=== PATIENT | female | born 1950 | race Caucasian/White ===

== ENCOUNTER → 2022-05-21 | Outpatient (CLI) | payer MEDICARE ==
[2022-05-21 18:21] LABS: BASOPHILS ABSOLUTE AUTO 0.04 K/mm3 (0.00-0.23); BASOPHILS PERCENT AUTO 1 % (0-2); EOSINOPHILS ABSOLUTE AUTO 0.12 K/mm3 (0.00-0.68); EOSINOPHILS PERCENT AUTO 2 % (0-6); Hematocrit 42.7 % (33.0-51.0); Hemoglobin 14.3 g/dL (11.5-16.0); IMMATURE GRAN ABSOLUTE AUTO 0.01 K/mm3 (0.00-0.10); IMMATURE GRAN PERCENT AUTO 0 % (0-1); LYMPHOCYTES ABSOLUTE AUTO 2.81 K/mm3 (0.84-5.20); LYMPHOCYTES PERCENT AUTO 42 % (21-46); MONOCYTES ABSOLUTE AUTO 0.43 K/mm3 (0.16-1.47); MONOCYTES PERCENT AUTO 6 % (4-13); Mean Corpuscular HGB 31.7 pg (26.0-34.0); Mean Corpuscular HGB Conc 33.5 g/dL (31.5-36.5); Mean Corpuscular Volume 95 fL (80-100); Mean Platelet Volume 9.4 fL (9.1-12.4); NEUTROPHILS ABSOLUTE AUTO 3.28 K/mm3 (1.96-9.15); NEUTROPHILS PERCENT AUTO 49 % (41-73); Platelet Count 265 K/mm3 (150-400); RDW Coefficient Variation 13.5 % (11.7-14.2); RDW Standard Deviation 46.6 fL (35.1-46.3); Red Blood Cell Count 4.51 M/mm3 (3.80-5.20); White Blood Cell Count 6.69 K/mm3 (4.00-11.30)
== END | disposition home or self-care (01) ==
LOC: LAB SHORT 18:16 → LAB 18:16
PROVIDERS: Family Medicine
DX: R05.9 Cough, unspecified (principal)
CPT/HCPCS: 85025; 85379

== ENCOUNTER → 2022-06-23 | Outpatient (CLI) | payer MEDICARE ==
[2022-06-24 11:12] LABS: Candida species (DNA Probe) Negative (NEGATIVE); G. vaginalis (DNA Probe) Negative (NEGATIVE); T. vaginalis (DNA Probe) Negative (NEGATIVE)
== END ==
LOC: LAB SHORT 18:25 → LAB 18:25
PROVIDERS: Advanced Practice Midwife
DX: N76.0 Acute vaginitis (principal)
CPT/HCPCS: 87480; 87510; 87660

== ENCOUNTER 2022-11-19 06:42 | Day surgery (SDC) | payer MEDICARE ==
[~2022-11-19] VITALS: Ht 162.6 cm; Wt 78.2 kg
[~2022-11-19 06:42] MED LIST: CARB100ER; CLON.5 PO; LEVSOD100 PO; Oxcarbazepine150 MG PO; ROSU10TA PO; TRAZ100 PO
[2022-11-19] MEDS ORDERED: EPINEPHRIN0.3 MG/0.1 (07:01)
[2022-11-19] MEDS ORDERED: DESVENLAFAXINE25 MG PO (07:01)
[2022-11-19] MEDS ORDERED: IPRATROPIUM BRO30 ML (07:02)
[2022-11-19] MEDS ORDERED: IBUP200 (07:03)
--- NOTE | 2022-11-19 07:09 | NUR ---
11/19/22 0709 Jessica Alan [id number] PLEDGET [id number]
[2022-11-19 08:27] VITALS: BP 150/73
== END 2022-11-19 08:46 | disposition home or self-care (01) ==
LOC: ORSCSDS 06:42
PROVIDERS: Ophthalmology
PROC: 08DK3ZZ Extraction of Left Lens, Percutaneous Approach (ICD-10-PCS; principal; 2022-11-19 08:00)
DX: H25.12 Age-related nuclear cataract, left eye (principal); E78.5 Hyperlipidemia, unspecified; I49.3 Ventricular premature depolarization; Z79.899 Other long term (current) drug therapy
CPT/HCPCS: J2001; J2250; J2704; J3010; J3301; J7040; V2632

== ENCOUNTER 2022-12-10 07:12 | Day surgery (SDC) | payer MEDICARE ==
[~2022-12-10] VITALS: Ht 162.6 cm; Wt 76.8 kg
[~2022-12-10 07:12] MED LIST changes: +DESVENLAFAXINE25 MG PO; +EPINEPHRIN0.3 MG/0.1; +IBUP200; +IPRATROPIUM BRO30 ML
--- NOTE | 2022-12-10 07:40 | NUR ---
12/10/22 0740 Dinora Ellington BETADINE SKIN CHECK DONE AT 0740 ON LEFT FOREARM
[2022-12-10] MEDS ORDERED: OXCARBAZEPINE600 M1 (07:43)
--- NOTE | 2022-12-10 09:00 | NUR ---
12/10/22 0900 Carlos Lou NEGATIVE IODINE SKIN TEST ON LEFT WRIST.
[2022-12-10 09:15] VITALS: BP 143/69
--- NOTE | 2022-12-10 09:37 | NUR ---
12/10/22 0937 Dustin Manriquez IV REMOVED.
== END 2022-12-10 09:32 | disposition home or self-care (01) ==
LOC: ORSCSDS 07:12
PROVIDERS: Ophthalmology
PROC: 08RJ3JZ Replacement of Right Lens with Synthetic Substitute, Percutaneous Approach (ICD-10-PCS; principal; 2022-12-10 08:30)
DX: H25.11 Age-related nuclear cataract, right eye (principal); Z96.1 Presence of intraocular lens; E78.5 Hyperlipidemia, unspecified; E03.9 Hypothyroidism, unspecified; G50.0 Trigeminal neuralgia; Z79.899 Other long term (current) drug therapy
CPT/HCPCS: J2001; J2250; J2704; J3010; J3301; J7040; V2632